=== PATIENT | female | born 1975 | race Caucasian/White ===

== ENCOUNTER → 2018-05-20 | Outpatient (CLI) | payer OTHER ==
[~2018-05-20] MED LIST: DOXY100 PO; ESCI20; LEVFLO500 PO; MIDOL; OXYACE5T PO; PROACE50 PO; PROM25 PO
== END | disposition home or self-care (01) ==
LOC: LAB SHORT 12:47 → LAB EV 12:47
DX: N39.0 Urinary tract infection, site not specified (principal)
CPT/HCPCS: 87086

== ENCOUNTER 2021-12-10 15:09 | Emergency (ER) | payer OTHER ==
[~2021-12-10] VITALS: Ht 152.4 cm; Wt 90.7 kg
[2021-12-10 15:46] LABS: BASOPHILS ABSOLUTE AUTO 0.07 K/mm3 (0.00-0.23); BASOPHILS PERCENT AUTO 1 % (0-2); EOSINOPHILS ABSOLUTE AUTO 0.05 K/mm3 (0.00-0.68); EOSINOPHILS PERCENT AUTO 1 % (0-6); Hematocrit 30.5 % (33.0-51.0); IMMATURE GRAN ABSOLUTE AUTO 0.04 K/mm3 (0.00-0.10); IMMATURE GRAN PERCENT AUTO 1 % (0-1); LYMPHOCYTES ABSOLUTE AUTO 0.91 K/mm3 (0.84-5.20); LYMPHOCYTES PERCENT AUTO 13 % (21-46); MONOCYTES ABSOLUTE AUTO 0.81 K/mm3 (0.16-1.47); MONOCYTES PERCENT AUTO 12 % (4-13); Mean Corpuscular HGB 16.2 pg (26.0-34.0); Mean Corpuscular HGB Conc 26.2 g/dL (31.5-36.5); Mean Corpuscular Volume 62 fL (80-100); Mean Platelet Volume 8.8 fL (9.1-12.4); NEUTROPHILS ABSOLUTE AUTO 4.97 K/mm3 (1.96-9.15); NEUTROPHILS PERCENT AUTO 73 % (41-73); Platelet Count 440 K/mm3 (150-400); RDW Coefficient Variation 20.3 % (11.7-14.2); RDW Standard Deviation 43.1 fL (35.1-46.3); Red Blood Cell Count 4.93 M/mm3 (3.80-5.20); White Blood Cell Count 6.85 K/mm3 (4.00-11.30)
[2021-12-10 16:08] LABS: Alanine Aminotransfer (ALT/SGP 35 U/L (12-78); Albumin, Blood 3.7 g/dL (3.4-5.0); Albumin/Globulin Ratio 0.8 (0.8-1.8); Alk Phos 83 U/L (50-136); Anion Gap 4 mmol/L (6-16); Aspartate Aminotrans (AST/SGOT 16 U/L (12-37); Bilirubin, Total 0.3 mg/dL (0.1-1.0); Blood Urea Nitrogen 10 mg/dL (8-24); Bun/Creatinine Ratio 16.9 (12.0-20.0); CO2, Blood 27 mmol/L (21-32); Chloride, Blood 103 mmol/L (98-108); Creatinine, Blood 0.59 mg/dL (0.40-1.00); Globulin, Blood 4.4 g/dL (2.2-4.0); Glomerular Filtration Rate >60 (60-); Glucose, Blood 128 mg/dL (70-99); Potassium, Blood 3.8 mmol/L (3.5-5.5); Sodium, Blood 134 mmol/L (136-145); Total Protein, Blood 8.1 g/dL (6.4-8.2)
== END 2021-12-10 21:10 | disposition home or self-care (01) ==
LOC: ER 15:09
PROVIDERS: Physician Assistant
DX: D50.9 Iron deficiency anemia, unspecified (principal); Z88.2 Allergy status to sulfonamides
CPT/HCPCS: 71046; 80053; 84443; 84484; 85025; 93005; 93010

== ENCOUNTER 2021-12-16 20:57 | Emergency (ER) | payer OTHER ==
[~2021-12-16] VITALS: Ht 152.4 cm; Wt 84.8 kg
[2021-12-16 21:36] LABS: BASOPHILS ABSOLUTE AUTO 0.08 K/mm3 (0.00-0.23); BASOPHILS PERCENT AUTO 1 % (0-2); EOSINOPHILS ABSOLUTE AUTO 0.19 K/mm3 (0.00-0.68); EOSINOPHILS PERCENT AUTO 3 % (0-6); Hematocrit 32.5 % (33.0-51.0); Hemoglobin 8.6 g/dL (11.5-16.0); IMMATURE GRAN ABSOLUTE AUTO 0.04 K/mm3 (0.00-0.10); IMMATURE GRAN PERCENT AUTO 1 % (0-1); LYMPHOCYTES ABSOLUTE AUTO 1.03 K/mm3 (0.84-5.20); LYMPHOCYTES PERCENT AUTO 17 % (21-46); MONOCYTES PERCENT AUTO 8 % (4-13); Mean Corpuscular HGB 16.9 pg (26.0-34.0); Mean Corpuscular HGB Conc 26.5 g/dL (31.5-36.5); Mean Corpuscular Volume 64 fL (80-100); Mean Platelet Volume 8.5 fL (9.1-12.4); NEUTROPHILS ABSOLUTE AUTO 4.11 K/mm3 (1.96-9.15); NEUTROPHILS PERCENT AUTO 69 % (41-73); Platelet Count 444 K/mm3 (150-400); RDW Coefficient Variation 22.4 % (11.7-14.2); Red Blood Cell Count 5.09 M/mm3 (3.80-5.20); White Blood Cell Count 5.95 K/mm3 (4.00-11.30)
[2021-12-16 22:03] LABS: Alanine Aminotransfer (ALT/SGP 33 U/L (12-78); Albumin, Blood 3.5 g/dL (3.4-5.0); Albumin/Globulin Ratio 0.8 (0.8-1.8); Alk Phos 82 U/L (50-136); Anion Gap 5 mmol/L (6-16); Aspartate Aminotrans (AST/SGOT 19 U/L (12-37); Bilirubin, Total 0.2 mg/dL (0.1-1.0); Blood Urea Nitrogen 7 mg/dL (8-24); Bun/Creatinine Ratio 10.2 (12.0-20.0); CO2, Blood 27 mmol/L (21-32); Calcium, Blood 8.9 mg/dL (8.5-10.1); Chloride, Blood 105 mmol/L (98-108); Creatinine, Blood 0.69 mg/dL (0.40-1.00); Globulin, Blood 4.3 g/dL (2.2-4.0); Glomerular Filtration Rate >60 (60-); Glucose, Blood 125 mg/dL (70-99); Potassium, Blood 3.6 mmol/L (3.5-5.5); Sodium, Blood 137 mmol/L (136-145); Total Protein, Blood 7.8 g/dL (6.4-8.2)
== END 2021-12-17 04:50 | disposition home or self-care (01) ==
LOC: ER 20:57
PROVIDERS: Emergency Medicine
DX: D64.9 Anemia, unspecified (principal); Z88.2 Allergy status to sulfonamides; Z91.013 Allergy to seafood
CPT/HCPCS: 36415; 80053; 84484; 85025; 93005; 93010; 99283-25

== ENCOUNTER 2022-02-14 08:49 | Day surgery (SDC) | payer OTHER ==
[~2022-02-14] VITALS: Ht 152.4 cm; Wt 93.2 kg
[2022-02-14] MEDS ORDERED: LABE100 (09:18)
[2022-02-14] MEDS ORDERED: PROG100 (09:20)
--- NOTE | 2022-02-14 13:39 | NUR ---
02/14/22 2997 CASTRO YAN PT STATES THAT SHE HAS CRAMPING BUT DOES NOT WANT TO TAKE ANY MEDICATION HERE FOR IT. SHE STATES THAT SHE WILL TAKE SOMETHING WHEN SHE GETS HOME. STATES CRAMPING IS NOT WORSE THEN WHEN SHE CAME IN TODAY.
== END 2022-02-14 13:30 | disposition home or self-care (01) ==
LOC: ORSCSDS 08:49
PROVIDERS: Obstetrics & Gynecology
PROC: 0UDB8ZX Extraction of Endometrium, Via Natural or Artificial Opening Endoscopic, Diagnostic (ICD-10-PCS; principal; 2022-02-14 10:00)
DX: N92.0 Excessive and frequent menstruation with regular cycle (principal); N85.00 Endometrial hyperplasia, unspecified; D50.0 Iron deficiency anemia secondary to blood loss (chronic); I10 Essential (primary) hypertension; K21.9 Gastro-esophageal reflux disease without esophagitis; E66.9 Obesity, unspecified; Z68.41 Body mass index [BMI] 40.0-44.9, adult; Z79.899 Other long term (current) drug therapy
CPT/HCPCS: 88305; J1100; J2250; J2405; J2704; J3010; J7120

== ENCOUNTER 2022-04-11 08:53 | Day surgery (SDC) | payer OTHER ==
[~2022-04-11] VITALS: Ht 152.4 cm; Wt 91.8 kg
[~2022-04-11 08:53] MED LIST changes: +LABE100 PO; +PROG100
[2022-04-11] MEDS ORDERED: ZYRTEC10 M2 PO (09:10)
[2022-04-11] MEDS ORDERED: Aygestin5 MG PO (09:10)
[2022-04-11] MEDS ORDERED: IRON18 MG PO (09:11)
[2022-04-11] MEDS ORDERED: VITAMIN B125000 MC1 PO (09:11)
[2022-04-11] MEDS ORDERED: C COMPLEX1000 M1 PO (09:11)
[2022-04-11] MEDS ORDERED: VITAMIN D5000 UNIT PO (09:12)
--- NOTE | 2022-04-11 10:07 | NUR ---
History, Chart, Medications and Allergies reviewed before start of procedure. Ambulatory in Day Surgery. Patient confirms NPO status and agrees with scheduled surgery. Patient States Post-Procedure ride home has been arranged, BOYFRIEND.
--- NOTE | 2022-04-11 14:30 | NUR ---
PT ARRIVED TO UNIT FROM PACU, ALERT AND ORIENTED, NO DISCHARGE AT INCISION SITES, DENIES NAUSEA. GISSELS, MARYANNE.
--- NOTE | 2022-04-11 15:49 | NUR ---
PT ALERT, ABLE TO AMBULATE TO BATHROOM, VOIDED WITHOUT ISSUE. NO DIZZINESS OR NAUSEA. VSS, WCTM.
--- NOTE | 2022-04-11 18:20 | NUR ---
NO ACUTE EVENTS, VSS. PT ALERT AND ORIENTED, INDEPENDENT IN ROOM. TOLERATED PO INTAKE OF SNACKS T/O AFTERNOON, TOLERATED EATING DINNER WELL. NO NAUSEA/DIZZINESS/BLEEDING AT SURGICAL SITES. PT STATES PAIN IS 1 OR 2 OUT OF 10, FEELS THAT IT IS WELL MANAGED JUST WITH TYLENOL AT THIS TIME. NO SIGNS OF ACUTE EVENTS, WCTM.
--- NOTE | 2022-04-11 18:40 | NUR ---
DISCHARGE NOTE PT PROVIDED DISCHARGE INFORMATION REGARDING FOLLOW UP PLANS, POST HYSTERECTOMY CARE AND RESTRICTIONS, POST-SURGICAL WOUND RESTRICTIONS AND ACTIVITY RESTRICTIONS, REASONS TO RETURN TO THE HOSPITAL AND CALL OBGYN AND MEDICATION INFORMATION. PT VERBALIZED UNDERSTANDING. VSS, NO SIGNS OF ACUTE DISTRESS. PT LEFT VIA WHEELCHAIR WITH SIGNIFICANT OTHER TO PROVIDE RIDE IN PERSONAL VEHICLE.
== END 2022-04-11 18:40 | disposition home or self-care (01) ==
LOC: ORSCMMR 08:53 → ORD 10:15 → ORSCMMR 10:15 → ORD 11:00 → SURS 14:28 → ORSCMMR 18:40
PROVIDERS: Obstetrics & Gynecology
PROC: 0UT74ZZ Resection of Bilateral Fallopian Tubes, Percutaneous Endoscopic Approach (ICD-10-PCS; principal; 2022-04-11 10:15)
PROC: 8E0W4CZ Robotic Assisted Procedure of Trunk Region, Percutaneous Endoscopic Approach (ICD-10-PCS; principal; 2022-04-11 10:15)
PROC: 0UT94ZZ Resection of Uterus, Percutaneous Endoscopic Approach (ICD-10-PCS; principal; 2022-04-11 10:15)
DX: N92.0 Excessive and frequent menstruation with regular cycle (principal); N80.0 Endometriosis of uterus; N94.6 Dysmenorrhea, unspecified; D25.9 Leiomyoma of uterus, unspecified; N83.8 Other noninflammatory disorders of ovary, fallopian tube and broad ligament; D50.9 Iron deficiency anemia, unspecified; I10 Essential (primary) hypertension; G47.33 Obstructive sleep apnea (adult) (pediatric); Z87.891 Personal history of nicotine dependence; E66.9 Obesity, unspecified; Z68.39 Body mass index [BMI] 39.0-39.9, adult; Z79.899 Other long term (current) drug therapy
CPT/HCPCS: 58571; S2900; 36415; 86850; 86900; 86901; 88307; A9270; J0690; J1100; J2250; J2370; J2405; J2704; J2765; J2795; J3010; J7120